=== PATIENT | female | born 1965 | race Caucasian/White ===

== ENCOUNTER → 2017-08-22 | Outpatient (REF) ==
[~2017-08-22] MED LIST: DULO20CA16 PO; HCTZ BC; LEV125 BC; LEV2I IM; LEV500 PO; LOR5/325 PO; METR-1 PO; OME20PT PO; POTT20 PO
[2017-08-22 16:15] LABS: LDL CHOLESTEROL 160 mg/dl
== END ==
DX: Z02.9 Encounter for administrative examinations, unspecified (principal)

== ENCOUNTER → 2017-08-22 | Outpatient (CLI) | payer OTHER | LOC: LAB 15:25 | PROVIDERS: ATTEND Physician Assistant | DX: E03.9 Hypothyroidism, unspecified (principal); R73.01 Impaired fasting glucose | CPT/HCPCS: 83036; 84481 ==

== ENCOUNTER → 2018-03-05 | Outpatient (CLI) | payer OTHER ==
[2018-03-05 16:08] LABS: LDL CHOLESTEROL 129 mg/dl
== END ==
LOC: LAB 15:37
PROVIDERS: ATTEND Physician Assistant
DX: E87.6 Hypokalemia (principal); E03.9 Hypothyroidism, unspecified; R53.83 Other fatigue; F07.81 Postconcussional syndrome
CPT/HCPCS: 36415; 82040; 82247; 82310; 82374; 82435; 82465; 82565; 82947; 83036; 83718; 84075; 84132; 84155; 84295; 84439; 84443; 84450; 84460; 84478; 84481; 84520

== ENCOUNTER → 2018-09-13 | Outpatient (CLI) | payer OTHER | LOC: LAB 10:22 | PROVIDERS: ATTEND Physician Assistant | DX: E87.6 Hypokalemia (principal); E03.9 Hypothyroidism, unspecified; R53.83 Other fatigue; F07.81 Postconcussional syndrome ==

== ENCOUNTER → 2018-09-13 | Outpatient (REF) ==
[2018-09-13 11:33] LABS: LDL CHOLESTEROL 152 mg/dl
== END ==
DX: Z02.9 Encounter for administrative examinations, unspecified (principal)